=== PATIENT | female | born 1970 | race Caucasian/White ===

== ENCOUNTER 2020-04-04 21:52 | Emergency (ER) | payer OTHER, SELFPAY ==
--- NOTE | ~2020-04-04 | XR_ITS ---
EXAMINATION: XR chest 1V portable DATE: 04/04/2020 23:36 INDICATION: Cough and shortness of breath TECHNIQUE: frontal view of the chest was obtained. COMPARISON: None FINDINGS: The lungs are clear with no focal airspace opacities, pulmonary edema, pleural effusion or pneumothor ax. The cardiomediastinal silhouette is normal. Couple surgical clips projecting over the left axilla /lateral left breast. IMPRESSION: 1. No acute cardiopulmonary disease. Reviewed, dictated and finalized at location A.
[2020-04-04 21:59] VITALS: BP 140/91; PULSE 116; RESP 15; TEMP 37.6; O2SAT 97
--- NOTE | 2020-04-04 22:01 | ED.URI ---
HPI - URI/Sore Throat General Chief Complaint: Upper Respiratory Infection Stated Complaint: COVID S/S Time Seen by Provider: 04/04/20 22:01 History of Present Illness HPI Narrative: Sore throat, cough, nausea, weakness, dizziness for the past few days. Associated with subjective fever. She is concerned that she has COVID-19. She has no known exposure. Related Data Allergies Allergy/AdvReac Type Severity Reaction Status Date / Time codeine Allergy Swelling Verified 04/04/20 21:54 Sulfa (Sulfonamide Allergy Swelling Verified 04/04/20 21:54 Antibiotics) Review of Systems Review of Systems: All systems reviewed & are unremarkable except as noted in HPI and below Constitutional: Constitutional: Reports chills, Reports fatigue, Reports fever(s) and Reports weakness ENT: Reports sore throat Cardiovascular: Cardiovascular: Reports chest pain Respiratory: Respiratory: Reports cough and Reports dyspnea Gastrointestinal: Gastrointestinal: Reports diarrhea, Reports nausea and Denies vomiting Genitourinary: Genitourinary: Denies dysuria Musculoskeletal: Musculoskeletal: Reports myalgias Neurologic: Reports weakness Exam Const: General: healthy appearing, no acute distress and alert Orientation/consciousness: patient oriented x3 HENMT: Mouth: Yes dry mucous membranes Neck: Neck: normal visual inspection and no lymphadenopathy Chest: Chest palpation & inspection: no tenderness Resp: Effort & Inspection: normal respiratory effort Auscultation: clear to auscultation bilaterally Cardio: Jugular venous distension: no JVD Rate: regular rate Rhythm: regular rhythm GI: Inspection: non-distended GI Palp: Yes Soft to palpation and No Tenderness to palpation present (GI) Skin: General skin exam: normal color Neuro: General: patient oriented x3 Speech: normal speech Extrem: General: normal to inspection Psych: Appearance: well kempt Affect: normal affect Course Vital Signs Vital signs: Vital Signs Temperature 37.6 C 04/04/20 21:59 Pulse Rate 116 H 04/04/20 21:59 Respiratory Rate 15 04/04/20 21:59 Blood Pressure 140/91 H 04/04/20 21:59 Pulse Oximetry 97 04/04/20 21:59 Temperature 37.6 C 04/04/20 21:59 Pulse Rate 82 04/04/20 22:05 Respiratory Rate 20 04/04/20 22:05 Blood Pressure 109/70 04/04/20 22:05 Pulse Oximetry 100 04/04/20 22:05 MDM - URI/Sore Throat MDM Narrative Medical decision making narrative: Exam benign. Will get labs and chest x-ray to rule out anything acute. Medical Records Attestation: I reviewed the patient's medical records. Lab Data Attestation: I reviewed the patient's lab results. Result diagrams: 04/04/20 22:58 04/04/20 22:58 Labs: Lab Results 04/04/20 04/04/20 04/04/20 Range/Units 22:27 22:58 22:58 WBC 5.1 (4.5-10.0) K/mm3 RBC 4.44 (4.2-5.4) M/mm3 Hgb 14.2 (12.0-15.0) g/dL Hct 42.0 (37.0-47.0) % MCV 94.6 (80-100) fl MCH 32.0 (26-34) pg MCHC 33.8 (32-36) g/dl RDW 12.9 (11.5-14.5) % Plt Count 245 (150-375) k/mm3 MPV 10.8 H (7.4-10.4) fl Immature Gran % (Auto) 0.0 (0-0.5) % Neut % (Auto) 53.1 (45.5-73.1) % Lymph % (Auto) 30.9 (18.3-44.2) % [place] % (Auto) 12.9 H (2.6-8.5) % Eos % (Auto) 2.5 (0-4.4) % Baso % (Auto) 0.6 (0.2-1.2) % Lymph # (Auto) 1.58 (0.9-3.2) K/mm3 [place] # (Auto) 0.7 H (0.1-0.6) K/mm3 Eos # (Auto) 0.1 (0-0.3) K/mm3 Baso # (Auto) 0.0 (0.0-0.1) K/mm3 Abs Immat Gran (auto) 0.00 (0.00-0.031) K/mm3 Absolute Neuts (auto) 2.7 (1.3-6.7) K/mm3 Absolute Nucleated RBC 0.0 (0.0-0.012) K/mm3 Nucleated RBC % 0.0 (0.0-0.2) % Sodium 138 (137-145) mmol/L Potassium 3.7 (3.4-5.0) mmol/L Chloride 102 (98-107) mmol/L Carbon Dioxide 27 (22-30) mmol/L Anion Gap 9 (8-16) mmol/L BUN 9 (7-17) mg/dL Creatinine 0.80 (0.7-1.0) mg/dL Estim Creat Clear Calc No
[2020-04-04 22:05] VITALS: BP 109/70; PULSE 82; RESP 20; O2SAT 100
--- NOTE | 2020-04-04 22:34 | ECG_ITS ---
Measurements Intervals [place] Rate: 88 P: 32 [place]: 144 QRS: -11 QRSD: 99 T: 32 QT: 349 QTc: 424 Interpretive Statements SINUS RHYTHM DELAYED PRECORDIAL R/S TRANSITION BASELINE WANDER- I BORDERLINE ECG Electronically Signed On 04-05-2020 7:50:36 CDT by Lefty Hightower D.O.
[2020-04-04 23:05] LABS: Basophils Percent Auto 0.6 % (0.2-1.2); Eosinophils Absolute Auto 0.1 K/mm3 (0-0.3); Eosinophils Percent Auto 2.5 % (0-4.4); Hemoglobin 14.2 g/dL (12.0-15.0); Lymphocytes Absolute Auto 1.58 K/mm3 (0.9-3.2); Lymphocytes Percent Auto 30.9 % (18.3-44.2); Mean Corpuscular HGB Conc 33.8 g/dl (32-36); Mean Corpuscular Volume 94.6 fl (80-100); Mean Platelet Volume 10.8 fl (7.4-10.4); Monocytes Absolute Auto 0.7 K/mm3 (0.1-0.6); Monocytes Percent Auto 12.9 % (2.6-8.5); Neutrophils Absolute Auto 2.7 K/mm3 (1.3-6.7); Neutrophils Percent Auto 53.1 % (45.5-73.1); Platelet Count Result 245 k/mm3 (150-375); Red Blood Count 4.44 M/mm3 (4.2-5.4); Red Cell Distribution Width 12.9 % (11.5-14.5); White Blood Count 5.1 K/mm3 (4.5-10.0)
[2020-04-04] MEDS: SODIUM CHLORIDE 0.9% IV 1,000 ML 999 ML IV CONT (23:07)
[2020-04-04] MEDS: KETOROLAC 30 MG/ML VIAL (*BKC) IV PUSH (23:07)
[2020-04-04 23:18] LABS: Anion Gap 9 mmol/L (8-16); Blood Urea Nitrogen 9 mg/dL (7-17); Calcium 8.9 mg/dL (8.4-10.2); Carbon Dioxide 27 mmol/L (22-30); Chloride 102 mmol/L (98-107); Estimated Glomerular Filt Rate > 60; Glucose 103 mg/dL (65-105); Potassium 3.7 mmol/L (3.4-5.0); Sodium 138 mmol/L (137-145)
[2020-04-05 00:11] VITALS: BP 138/70; PULSE 80; RESP 16; O2SAT 99
[2020-04-05 12:13] LABS: SARS-CoV-2 RNA PCR Positive
== END 2020-04-05 00:12 | disposition home or self-care (01) ==
PROVIDERS: Emergency Provider Emergency Medicine
DX: U07.1 COVID-19 (principal); J06.9 Acute upper respiratory infection, unspecified; R94.31 Abnormal electrocardiogram [ECG] [EKG]
CPT/HCPCS: 36415; 71045; 80048; 85025; 87635; 87880; 93005; 96361; 96374; 99284; C9803; J1885; J7030; U0003

== ENCOUNTER 2020-11-07 22:20 | Emergency (ER) | payer OTHER, SELFPAY ==
--- NOTE | ~2020-11-07 | XR_ITS ---
EXAMINATION: XR chest 1V portable DATE: 11/07/2020 22:46 INDICATION: Chest pain. Fever. TECHNIQUE: A single frontal view of the chest was obtained. COMPARISON: Chest single view 04/04/2020 FINDINGS: The chest demonstrates clear lungs without pneumonia, pleural effusion, or pneumothorax. Th e heart size is normal. There are surgical clips in left axilla. IMPRESSION: 1. No acute cardiopulmonary disease. Reviewed, dictated and finalized at location A.
[2020-11-07 22:23] VITALS: BP 153/89; PULSE 90; RESP 14; TEMP 38.3; O2SAT 98
--- NOTE | 2020-11-07 22:30 | ECG_ITS ---
Measurements Intervals [place] Rate: 88 P: 17 [place]: 143 QRS: -4 QRSD: 86 T: 21 QT: 334 QTc: 405 Interpretive Statements SINUS RHYTHM BASELINE WANDER- I, II, III NORMAL ECG Electronically Signed On 11-08-2020 7:07:29 CDT by Lefty Hightower D.O.
[2020-11-07 22:37] VITALS: PULSE 84
[2020-11-07] MEDS: MORPHINE SULFATE (*CRX) 4 MG/ML INJ IV PUSH (22:44)
[2020-11-07] MEDS: ONDANSETRON INJ 4 MG/2 ML VIAL IV PUSH (22:44)
[2020-11-07] MEDS: ASPIRIN 81 MG CHEWABLE TABLET 324 MG PO (22:44)
[2020-11-07 23:13] LABS: Basophils Absolute Auto 0.1 K/mm3 (0.0-0.1); Basophils Percent Auto 1.2 % (0.2-1.2); Eosinophils Absolute Auto 0.1 K/mm3 (0-0.3); Eosinophils Percent Auto 1.4 % (0-4.4); Hematocrit 40.6 % (37.0-47.0); Hemoglobin 13.8 g/dL (12.0-15.0); Immature Granulocyte Absolute 0.02 K/mm3 (0.00-0.031); Immature Granulocyte Percent A 0.3 % (0-0.5); Lymphocytes Absolute Auto 1.15 K/mm3 (0.9-3.2); Lymphocytes Percent Auto 20.1 % (18.3-44.2); Mean Corpuscular Hemoglobin 31.9 pg (26-34); Mean Corpuscular Volume 93.8 fl (80-100); Monocytes Absolute Auto 0.4 K/mm3 (0.1-0.6); Monocytes Percent Auto 6.8 % (2.6-8.5); Neutrophils Percent Auto 70.2 % (45.5-73.1); Platelet Count Result 228 k/mm3 (150-375); Red Blood Count 4.33 M/mm3 (4.2-5.4); Red Cell Distribution Width 12.9 % (11.5-14.5); White Blood Count 5.7 K/mm3 (4.5-10.0)
[2020-11-07 23:14] VITALS: TEMP 38.3
[2020-11-07 23:22] LABS: Alanine Aminotransferase 24 U/L (4-35); Alkaline Phosphatase 49 U/L (38-126); Anion Gap 6 mmol/L (8-16); Aspartate Amino Transferase 31 U/L (14-36); Bilirubin,Total 1.1 mg/dL (0.2-1.3); Blood Urea Nitrogen 15 mg/dL (7-17); Carbon Dioxide 27 mmol/L (22-30); Chloride 102 mmol/L (98-107); Estimated CRCL calculation 79 ml/min; Estimated Glomerular Filt Rate 58; Glucose 116 mg/dL (65-105); Lipase 111 U/L (23-300); Potassium 3.6 mmol/L (3.4-5.0); Sodium 135 mmol/L (137-145)
[2020-11-07] MEDS: KETOROLAC 30 MG/ML VIAL (*BKC) IV PUSH (23:26)
[2020-11-07 23:33] LABS: Troponin I < 0.012 ng/mL (0.000-0.034)
--- NOTE | 2020-11-07 23:35 | PC.NURSE ---
Patient in room stating the pain improved initially but has gradually gotten worse. EDP Bri was notified, 30mg Toradol ordered.
[2020-11-07 23:41] VITALS: BP 140/109; PULSE 93; RESP 16; O2SAT 96
[2020-11-07 23:42] LABS: Add Urine Microscopic? YES; Appearance Urine Clear (Clear); Bacteria Urine Trace /hpf; Bilirubin Urine Negative (Negative); Blood Urine Negative (Negative); Color Urine Straw (Yellow); Glucose Urine UA Negative (Negative); Ketones Urine Trace mg/dL (Negative); Leukocyte Esterase Ur Negative LEU/UL (Negative); Nitrate Urine Negative (Negative); Protein Urine Negative (Negative); RBC Urine 0-2 /hpf (0-2); Squamous Epithelial Cell Urine Rare /hpf (Few); Urobilinogen Urine Negative mg/dL (<2.0); WBC Urine 0-3 /hpf
[2020-11-07 23:56] VITALS: TEMP 38.3
--- NOTE | 2020-11-08 00:24 | ED.GENADULT ---
HPI - General Adult General Chief complaint: Chest Pain Stated complaint: CHEST PAIN Time Seen by Provider: 11/07/20 22:24 History of Present Illness HPI narrative: Patient is a 50-year-old female who presents the emergency department with chief complaint of fever and chest pain. The patient reports that she just had her second Covid vaccine and now has a sharp type pain in her chest that is worse whenever she takes a deep breath. Patient states that she has fever and body aches and just feels generally unwell. Related Data Allergies Allergy/AdvReac Type Severity Reaction Status Date / Time codeine Allergy Swelling Verified 04/04/20 21:54 Sulfa (Sulfonamide Allergy Swelling Verified 04/04/20 21:54 Antibiotics) Review of Systems Review of Systems: Narrative: A 10 system review of systems was completed on the patient and is negative except for what is stated in the HPI. Nursing and ancillary documentation was reviewed. PMFSH Comments Past medical history is significant for COVID-19 infection previously Social history the patient denies smoking Exam Narrative: Exam Narrative: GENERAL: Well-appearing, well-nourished, and in no acute distress. HEAD: Normocephalic, atraumatic. EYES: PERRLA and EOMI. ENT: Nares clear, no rhinorrhea or epistaxis. Mucous membranes moist. NECK: Supple. CHEST: Clear to auscultation. No respiratory distress. Chest wall is tender to palpation along the costal cartilage HEART: Regular rate and rhythm. No murmur heard. Normal peripheral pulses. ABDOMEN: Soft, nontender, nondistended, normal active bowel sounds. EXTREMITIES: Normal range of motion. No edema. SKIN: Warm, dry, no rash. NEURO: No focal deficits. Alert and oriented x3. PSYCH: Normal mood and affect. Course Vital Signs Vital signs: Vital Signs Temperature 38.3 C H 11/07/20 22:23 Pulse Rate 90 11/07/20 22:23 Respiratory Rate 14 11/07/20 22:23 Blood Pressure 153/89 H 11/07/20 22:23 Pulse Oximetry 98 11/07/20 22:23 Temperature 38.3 C H 11/07/20 23:14 Pulse Rate 84 11/07/20 22:37 Respiratory Rate 14 11/07/20 22:23 Blood Pressure 153/89 H 11/07/20 22:23 Pulse Oximetry 98 11/07/20 22:23 Medical Decision Making Vital Signs Vital Signs: Vital Signs Temperature 38.3 C H 11/07/20 22:23 Pulse Rate 90 11/07/20 22:23 Respiratory Rate 14 11/07/20 22:23 Blood Pressure 153/89 H 11/07/20 22:23 Pulse Oximetry 98 11/07/20 22:23 Temperature 38.3 C H 11/07/20 23:14 Pulse Rate 84 11/07/20 22:37 Respiratory Rate 14 11/07/20 22:23 Blood Pressure 153/89 H 11/07/20 22:23 Pulse Oximetry 98 11/07/20 22:23 Lab Data Result diagrams: 11/07/20 23:05 11/07/20 23:05 Labs: Lab Results 11/07/20 11/07/20 11/07/20 Range/Units 23:05 23:05 23:30 WBC 5.7 (4.5-10.0) K/mm3 RBC 4.33 (4.2-5.4) M/mm3 Hgb 13.8 (12.0-15.0) g/dL Hct 40.6 (37.0-47.0) % MCV 93.8 (80-100) fl MCH 31.9 (26-34) pg MCHC 34.0 (32-36) g/dl RDW 12.9 (11.5-14.5) % Plt Count 228 (150-375) k/mm3 MPV 10.0 (7.4-10.4) fl Immature Gran % (Auto) 0.3 (0-0.5) % Neut % (Auto) 70.2 (45.5-73.1) % Lymph % (Auto) 20.1 (18.3-44.2) % [place] % (Auto) 6.8 (2.6-8.5) % Eos % (Auto) 1.4 (0-4.4) % Baso % (Auto) 1.2 (0.2-1.2) % Lymph # (Auto) 1.15 (0.9-3.2) K/mm3 [place] # (Auto) 0.4 (0.1-0.6) K/mm3 Eos # (Auto) 0.1 (0-0.3) K/mm3 Baso # (Auto) 0.1 (0.0-0.1) K/mm3 Abs Immat Gran (auto) 0.02 (0.00-0.031) K/mm3 Absolute Neuts (auto) 4.0 (1.3-6.7) K/mm3 Absolute Nucleated RBC 0.0 (0.0-0.012) K/mm3 Nucleated RBC % 0.0 (0.0-0.2) % Sodium 135 L (137-145) mmol/L Potassium 3.6 (3.4-5.0) mmol/L Chloride 102 (98-107) mmol/L Carbon Dioxide 27 (22-30) mmol/L Anion Gap 6 L (8-16) mmol/L BUN 15 D (7-17) mg/dL Creatinine 1.00 (0.7-1.0) mg/dL Estim Creat Clear C
[2020-11-08 00:40] VITALS: TEMP 38.3
[2020-11-08 01:24] VITALS: BP 153/85; PULSE 85; RESP 20; O2SAT 95
== END 2020-11-08 01:26 | disposition home or self-care (01) ==
PROVIDERS: Emergency Provider Emergency Medicine
DX: R50.9 Fever, unspecified (principal); R07.89 Other chest pain; Z86.16 Personal history of COVID-19
CPT/HCPCS: 36415; 71045; 80053; 81001; 83690; 84484; 85025; 93005; 96374; 96375; 99284; A9270; J0131; J1885; J2270; J2405

== ENCOUNTER 2023-07-29 12:27 | Observation (INO) | payer OTHER, SELFPAY ==
[2023-07-29] VITALS (20 sets, daily range): BP systolic 109–157; BP diastolic 71–105; PULSE 90–116; RESP 16–33; TEMP 36.2–36.6; O2SAT 96–100; BMI 33.2
--- NOTE | ~2023-07-29 | XR_ITS ---
EXAMINATION: XR chest 2V DATE: 07/29/2023 13:35 INDICATION: Cough, right-sided chest pain with inspiration TECHNIQUE: frontal and lateral views of the chest were obtained. COMPARISON: Chest radiograph dated 11/07/2020 FINDINGS: There are airspace opacities in the bilateral lower lung zones. No pleural effusion or pneumothorax. Heart size is normal. Asymmetric decreased size of the left breast shadow relative to the right with multiple surgical clips suggesting prior partial mastectomy. Additional surgical clips at the left ax illa consistent with associated lymph node dissection. IMPRESSION: 1. Opacities at the bilateral lower lung zones which could represent atelectasis and/or pneumonia. Reviewed, dictated and finalized at location A. Y MIXER IMPRESSION: 1. Opacities at the bilateral lower lung zones which could represent atelectasi s and/or pneumonia.
--- NOTE | ~2023-07-29 | CT_ITS ---
EXAMINATION: CTA chest PE protocol DATE: 07/29/2023 19:53 VEGETABLE FARM WORKER INDICATION: Elevated d-dimer. Tachycardia. TECHNIQUE: Computed tomographic angiography (CTA) of the chest was performed with 100 mL Omnipaque-35 0 intravenous contrast. The dose-length product was 649.83 mGy-cm. Maximum intensity projection 3D-re constructions of the aorta and other arteries were constructed by the technologist on a separate work station. Automated exposure control and iterative reconstruction technique were employed. COMPARISON: Chest x-ray dated 07/29/2023. FINDINGS: Study technically adequate. There is occlusion of the right lower lobe pulmonary artery, co nsistent with pulmonary embolism. There is right hilar and lower lobe soft tissue which may represent lymphadenopathy. There is extensive bilateral lower lobe airspace disease, compatible with pneumonia . No endobronchial lesions. No pneumothorax. There is a low-density 2.5 cm right adrenal mass, most l ikely benign adenoma. IMPRESSION: 1. Right lower lobe pulmonary embolism, moderate thrombus burden. 2: Bilateral lower lobe pneumonia. 3: Right hilar and lower lobe soft tissue which may represent lymphadenopathy, although underlying m alignancy not excluded. Reviewed, dictated and finalized at location A. TABLE FARM WORKER IMPRESSION: 1. Right lower lobe pulmonary embolism, moderate thrombus burden. 2: Bilateral lower lobe pneumonia. 3: Right hilar and lower lobe soft tissue which may represent lymphadenopathy, although underlying malignancy not excluded.
--- NOTE | 2023-07-29 12:27 | ECG_ITS ---
Measurements Intervals [place] Rate: 109 P: 23 CO: 136 QRS: -14 QRSD: 93 T: 15 QT: 311 QTc: 420 Interpretive Statements SINUS TACHYCARDIA BORDERLINE VOLTAGE EVIDENCE OF LVH POOR R-WAVE PROGRESSION ABNORMAL ECG ABNORMAL RHYTHM ECG COMPARED TO ECG 11/07/2020 22:26:22 HEART RATE INCREASED NO OTHER SIGNIFICANT CHANGE Electronically Signed On 07-30-2023 13:01:21 RESEARCH ANTHROPOLOGIST by Rashad Dumont M.D.
[2023-07-29 13:15] LABS: Basophils Absolute Auto 0.1 K/mm3 (0.0-0.1); Basophils Percent Auto 0.7 % (0.2-1.2); Eosinophils Absolute Auto 0.2 K/mm3 (0-0.3); Eosinophils Percent Auto 1.3 % (0-4.4); Hematocrit 45.4 % (37.0-47.0); Hemoglobin 14.4 g/dL (12.0-15.0); Immature Granulocyte Absolute 0.04 K/mm3 (0.00-0.031); Immature Granulocyte Percent A 0.3 % (0-0.5); Lymphocytes Absolute Auto 1.92 K/mm3 (0.9-3.2); Lymphocytes Percent Auto 16.5 % (18.3-44.2); Mean Corpuscular HGB Conc 31.7 g/dl (32-36); Mean Corpuscular Hemoglobin 30.8 pg (26-34); Mean Corpuscular Volume 97.2 fl (80-100); Mean Platelet Volume 9.7 fl (7.4-10.4); Monocytes Absolute Auto 1.1 K/mm3 (0.1-0.6); Monocytes Percent Auto 9.3 % (2.6-8.5); Neutrophils Absolute Auto 8.3 K/mm3 (1.3-6.7); Neutrophils Percent Auto 71.9 % (45.5-73.1); Platelet Count Result 283 k/mm3 (150-375); Red Blood Count 4.67 M/mm3 (4.2-5.4); Red Cell Distribution Width 13.2 % (11.5-14.5); White Blood Count 11.6 K/mm3 (4.5-10.0)
[2023-07-29 13:28] LABS: Alanine Aminotransferase 27 U/L (6-35); Albumin Level 4.4 g/dL (3.5-5.1); Alkaline Phosphatase 81 U/L (38-126); Anion Gap 11 mmol/L (8-16); Aspartate Amino Transferase 26 U/L (14-36); Bilirubin,Total 1.7 mg/dL (0.2-1.3); Blood Urea Nitrogen 19 mg/dL (7-17); Calcium 9.5 mg/dL (8.4-10.2); Carbon Dioxide 24 mmol/L (22-30); Chloride 102 mmol/L (98-107); Estimated CRCL calculation 85 ml/min; Estimated Glomerular Filt Rate > 60; Glucose 120 mg/dL (65-110); INR 1.1; Lipase 101 U/L (23-300); Potassium 4.3 mmol/L (3.4-5.0); Prothrombin Time 14.3 Seconds (11.1-14.7); Sodium 137 mmol/L (137-145)
[2023-07-29 13:29] LABS: Partial Thromboplastin Time 30.5 SECONDS (22.3-36.8)
[2023-07-29 13:40] LABS: Troponin I < 0.012 ng/mL (0.000-0.034)
--- NOTE | 2023-07-29 16:47 | ED.CHESTPAIN ---
HPI - Chest Pain General Chief Complaint: Chest Pain Stated Complaint: Chest pain Time Seen by Provider: 07/29/23 16:37 Source: patient and family Limitations: no limitations History of Present Illness HPI narrative: This is a 52 yo female who presents with R sided chest pain for 4 days. Pain is improved with staying still and worsened by lying down. She describes it as a pressure, sharp. It radiates to her right arm and neck. 10/10 in severity and constant. No myalgias, URI symptoms, sick contacts. She describes it as pleuritic and constant. Worse with movement. This has happened before but that was in the setting of her receiving her covid shot #2; no recent immunizations. She is also short of breath. She has an upcoming surgery planned and underwent cardiac clearance. Non smoker. History of acid reflux. Also has a headache and her ears pop. She sees a medical oncology physician (Mary Kay) who has her on atenolol for an increased heart rate. Received an MRI of her heart at [facility] that showed a callous on her heart versus aortic valve felt to be secondary to a port she previously had in place. Related Data Home Medications Medication Instructions Recorded Confirmed atenolol 25 mg tablet 12.5 mg HS 07/29/23 07/29/23 cetirizine 10 mg tablet (Zyrtec) 10 mg PO HS 07/29/23 07/29/23 levothyroxine 75 mcg tablet 75 mcg PO DAILY 07/29/23 07/30/23 (Synthroid) venlafaxine 75 mg capsule,extended 75 mg PO DAILY 07/29/23 07/29/23 release 24 hr Allergies Allergy/AdvReac Type Severity Reaction Status Date / Time adhesive tape Allergy Blister Verified 07/29/23 22:01 codeine Allergy Swelling Verified 04/04/20 21:54 Sulfa (Sulfonamide Allergy Swelling Verified 04/04/20 21:54 Antibiotics) [facility] Past Medical History Medical History (Updated 07/31/23 @ 00:27 by Gaby Barros MD) Allergic rhinitis Breast cancer Invasive ductal carcinoma 1st occurrence in 1999 treated with lumpectomy, radiation therapy and chemotherapy. With recurrence in 2004 treated with chemotherapy and mastectomy. She had subsequent breast reconstruction in 2005 complicated by MRSA of the implant site with implant removal Essential hypertension Hypothyroidism Surgical History Surgical History (Updated 07/30/23 @ 08:11 by Renee Felipe DO) History of total mastectomy of left breast (~2004) Status post left breast reconstruction (~2005) Complicated by MRSA infection and subsequent removal of breast implant Family History Family History Father Hypertension Heart disease Mother High cholesterol Social History Social History (Updated 07/30/23 @ 08:13 by Renee Felipe DO) Social History: The patient has 2 master's degrees in various michelle of Education. 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 Her children her now adults. She has been for approximately 32 years. She has 3 grand children 1 of which stays with her frequently. She did smoke briefly in her 20s. She denies significant alcohol use or illicit substance use. Code status: Full code Surrogate decision maker: Smoking packs per day: 1 Smoking cigarettes per day: 20.0 Years smoked: 2 Smoking pack-years: 2.00 Smoking status: Former smoker Tobacco type: cigarettes Alcohol intake: never Substance use: never Lack of Transportation: No Lack of Food: Never True Current Housing: I Have Housing Concerned About Future Housing: No Difficulty Paying Gas/Electric Bills: No Difficulty Paying for Meds: No Currently Unemployed: No Education: Master's Degree or Higher Difficulty w/ Childcare or Family Care: No Spiritual care concerns: No Exam Narrative: GENERAL: Well-appearing, well-nourished, in acute acute distress. HEAD: Normocephalic, atraumatic. EYES: Non injected, non icteric. ENT: Nares clear, no rhinorrhea or epistaxis. NECK: Supple. No meningismus CHES
--- NOTE | 2023-07-29 17:10 | PC.NURSE ---
pt wants to avoid NSAIDs because their doctor said it is contraindicated with effexor
[2023-07-29] MEDS: MORPHINE SULFATE (*CRX) 4 MG/ML INJ IV PUSH (18:22)
[2023-07-29 18:37] LABS: D Dimer 1.23 ug/mL (<0.48)
[2023-07-29 18:47] LABS: Influenza A QL RT-PCR Negative (Negative); Influenza B QL RT-PCR Negative (Negative); SARS-CoV-2 RNA PCR Negative (Negative)
[2023-07-29 18:47] LABS: Troponin I < 0.012 ng/mL (0.000-0.034)
[2023-07-29] MEDS: ONDANSETRON INJ 4 MG/2 ML VIAL (18:51)
--- NOTE | 2023-07-29 18:53 | ECG_ITS ---
Measurements Intervals [place] Rate: 75 P: 23 MI: 155 QRS: -1 QRSD: 88 T: 21 QT: 385 QTc: 432 Interpretive Statements SINUS RHYTHM POOR R-WAVE PROGRESSION ABNORMAL ECG COMPARED TO ECG 07/29/2023 12:32:32 NO DIFFERENCE Electronically Signed On 07-30-2023 15:01:01 EBAY RESELLER by Rashad Dumont M.D.
[2023-07-29] MEDS: ACETAMINOPHEN 500 MG TABLET 1000 MG PO (19:29)
--- NOTE | 2023-07-29 21:43 | ADMGEN ---
This patient, Chio Frausto, was admitted to 3 Med Surg Room 306-01. Patient/family oriented to hospital policies and general routines including ID bracelet, bed and alarms, visiting hours, pain management, procedures, bathroom and other care routines, personal items, smoking policy, room service/diet, and visiting hours. Information on how to activate the Rapid Response Team has been discussed. Patient/Family are encouraged to report perceived risks to care and to ask questions if they do not understand what they are told or what they should do.
[2023-07-29 21:51] LABS: Troponin I < 0.012 ng/mL (0.000-0.034)
[2023-07-29] MEDS: APIXABAN 5 MG TABLET 10 MG PO (22:10)
[2023-07-29] MEDS: HYDROcodone/acetaminophen (*CRX) 5-325 MG TABLET 1 TAB PO (22:52)
--- NOTE | 2023-07-29 23:49 | PM.IMHP ---
H&P: HPI History of Present Illness Date/Time: 07/29/23 23:49 Chief Complaint: Right-sided chest pain Narrative: 52-year-old female with a past medical history of invasive ductal carcinoma, hypothyroidism, essential hypertension and depression who presented to the ER with right-sided chest pain. Patient reports the chest pain is right-sided and extends up into the right neck. Pain is more in the basin radiates through to the back. Pain is worse with deep breathing and is associated with some shortness of breath. She reports that it hurts more to cough so she has been suppressing her cough that is dry. She denies any fevers or chills or recent ill contacts. She denies any lower extremity swelling or sedentary lifestyle. She denies any family history of DVTs or PEs. She does have a history of breast cancer with 2 recurrences 1st occurrence in 2001nd in 2004. She had a CTA of the chest in the ER which demonstrated right lower lobe pulmonary embolism with moderate thrombus burden and bilateral lower lobe pneumonia with right hilar and lower lobe soft tissue changes which may represent lymphadenopathy. Although underlying malignancy could not be excluded. Patient denies any history of known lung disease, asthma, tobacco use or prolonged travel. 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 She denies any tachycardia or palpitations. Her chest discomfort is worse with exertion. It is also worse with laying supine and improved with sitting up. Review of Systems Review of Systems: 12 systems were reviewed with pertinent positives and negatives per HPI. Except as documented in the HPI, all other systems were reviewed and are negative. [facility] Past Medical History Medical History (Updated 07/30/23 @ 08:14 by Renee Felipe DO) Allergic rhinitis Breast cancer Invasive ductal carcinoma 1st occurrence in 1999 treated with lumpectomy, radiation therapy and chemotherapy. With recurrence in 2004 treated with chemotherapy and mastectomy. She had subsequent breast reconstruction in 2005 complicated by MRSA of the implant site with implant removal Essential hypertension Hypothyroidism Surgical History Surgical History (Updated 07/30/23 @ 08:11 by Renee Felipe DO) History of total mastectomy of left breast (~2004) Status post left breast reconstruction (~2005) Complicated by MRSA infection and subsequent removal of breast implant Family History Family History Father Hypertension Heart disease Mother High cholesterol Social History Social History (Updated 07/30/23 @ 08:13 by Renee Felipe DO) Social History: The patient has 2 master's degrees in various michelle of Education. 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 She has been for approximately 32 years. She has 3 grand children 1 of which stays with her frequently. She did smoke briefly in her 20s. She denies significant alcohol use or illicit substance use. Code status: Full code Surrogate decision maker: Smoking packs per day: 1 Smoking cigarettes per day: 20.0 Years smoked: 2 Smoking pack-years: 2.00 Smoking status: Former smoker Tobacco type: cigarettes Alcohol intake: never Substance use: never Lack of Transportation: No Lack of Food: Never True Current Housing: I Have Housing Concerned About Future Housing: No Difficulty Paying Gas/Electric Bills: No Difficulty Paying for Meds: No Currently Unemployed: No Education: Master's Degree or Higher Difficulty w/ Childcare or Family Care: No Spiritual care concerns: No Meds Home Medications and Allergies Home Medications Medication Instructions Recorded Confirmed Type atenolol 25 mg tablet 12.5 mg HS 07/29/23 07/29/23 History cetirizine 10 mg tablet (Zyrtec) 10 mg PO HS 07/29/23 07/29/23 History levothyroxine 75 mcg tablet 75 m
[2023-07-30] VITALS (14 sets, daily range): BP systolic 130–142; BP diastolic 63–84; PULSE 70–141; RESP 18–20; TEMP 36.4–37.2; O2SAT 93–97
--- NOTE | 2023-07-30 | ECHO_ITS ---
Patient Info Name: Chio Frausto Age: 52 years : 1970 Gender: Female Ht: 72 in Wt: 244 lbs BSA: 2.40 m2 HR: 108 bpm BP: 131 / 70 mmHg Heart Rhythm: Sinus Rhythm Technical Quality: Fair Exam Date: 07/30/2023 10:10 AM Exam Location: Echo Lab Exam Room: [facility] Patient Status: Inpatient Admit Date: 07/29/2023 Staff Ordering Physician: Renee Felipe DO Pellet Post Inspector: Emilee Aguirre RDCS Attending Provider: Renee Felipe DO Referring Physician: Destinee ROY; Exam Type: CA echo dop color flow w con Study Info Indications - PULMONARY EMBOLISM Complete two-dimensional, color flow and Doppler transthoracic echocardiogram is performed with contrast to opacify the left ventricle and to improve the deliniation of the left ventricle endocardial borders. Contrast/Agitated Saline Contrast/Ag. Saline: Definity Amount: 2.00 ml Administered By: Emilee Aguirre RDCS Existing IV Access: Yes IV Access Condition: patent with no signs of infiltration Summary 1. Technically difficult exam/definity contrast utilized to improve imaging. 2. Normal left ventricular size with preserved systolic contractility. 3. No significant valvular dysfunction. 4. No regional wall motion abnormalities were identified. Left Ventricle Left ventricular chamber dimension is normal. Left ventricular systolic function is normal, estimated at 60-65%. The left ventricular diastolic function is grade I diastolic dysfunction. Right Ventricle Right ventricular chamber dimension is normal. Left Atria Left atrial chamber dimension is normal. Right Atria Right atrial chamber dimension is normal. Aortic Valve The aortic valve is normal. Pulmonic Valve The pulmonic valve is not well visualized. Mitral Valve The mitral valve has normal leaflets. Tricuspid Valve The tricuspid valve leaflets are not well visualized. Pericardium/Pleural The pericardium appears normal. Aorta The aortic root size at the sinus of Valsalva is normal. Left Ventricular Outflow Tract Name Value Normal LVOT 2D LVOT Diameter 1.89 cm LVOT Doppler LVOT Peak Gradient 7 mmHg LVOT Mean Gradient 4 mmHg LVOT VTI 26.42 cm LVOT VTI/AV VTI Ratio 0.94 LVOT Stroke Volume 74.12 ml LVOT CO 6.96 l/min LVOT CI 2.89 L/min/m2 Pulmonic Valve Name Value Normal RVOT Doppler RVOT Peak Gradient 3 mmHg PV Doppler PV Peak Gradient 6 mmHg Mitral Valve Name Value Normal MV Do
[2023-07-30] MEDS: ACETAMINOPHEN 325 MG TABLET 650 MG PO (01:30)
[2023-07-30] MEDS: HYDROcodone/acetaminophen (*CRX) 5-325 MG TABLET 1 TAB PO ×5 (04:10→21:09)
[2023-07-30] MEDS: APIXABAN 5 MG TABLET 10 MG PO ×2 (08:31→20:45)
[2023-07-30] MEDS: levoFLOXacin 750 MG TABLET PO (08:35)
[2023-07-30] MEDS: PERFLUTREN LIPID MICROSPHERES 1.5 ML VIAL DILUTED TO 10 ML TOTAL VOLUME IV PUSH (10:48)
--- NOTE | 2023-07-30 11:15 | IVDEFINITY ---
Prior to administration of IV Definity the patient was educated on the risks and benefits of the imaging enhancing agent including potential adverse side effects. The patient verbalized understanding. Allergies were verified. No exclusion criteria were identified and at least one of the following inclusion criteria were met: 1) physician request, 2) patient technically difficult to image (per the [place] [employer] Echocardi[employer] guidelines of two or more segments not discernable within the apical view), or 3) questionable left ventricular function. ?
[2023-07-30] MEDS: VENLAFAXINE HCL XR 75 MG CAP.ER.24H PO (14:50)
--- NOTE | 2023-07-30 19:03 | PHAR ---
HOME MED: SYNTHROID (LEVOTHYROXINE) 75 MG TABLETS, TAKE ONE TABLET BY MOUTH EVERY DAY, PATIENTS HOME MED VERIFIED IN PHARMACY.
[2023-07-30] MEDS: LORATADINE 10 MG TABLET PO (20:46)
[2023-07-30] MEDS: atenoloL 12.5 MG TABLET PO (20:47)
--- NOTE | 2023-07-30 21:41 | PC.NURSE ---
home Synthroid verified by pharmacy
[2023-07-31] VITALS (7 sets, daily range): BP systolic 116–140; BP diastolic 80–83; PULSE 85–100; RESP 18–20; TEMP 35.8–36.5; O2SAT 93–97
[2023-07-31] MEDS: HYDROcodone/acetaminophen (*CRX) 5-325 MG TABLET 1 TAB PO (02:33)
--- NOTE | 2023-07-31 04:50 | PC.NURSE ---
called DO Destinee pt is c/o chest pain on right side with breathing states 04/05, last [place]co was around 2am and patient is unable to have any more pain medication except tylenol at this time. awaiting call back.
[2023-07-31] MEDS: ACETAMINOPHEN 325 MG TABLET 650 MG PO (04:52)
[2023-07-31] MEDS: HYDROmorphone HCL INJ (*CRX) 1 MG/ML SYR 0.5 MG IV PUSH (05:13)
--- NOTE | 2023-07-31 05:24 | PC.NURSE ---
hydromorphone given for co patient R chest with breathing per DO Hopen aware
[2023-07-31] MEDS: LEVOTHYROXINE SODIUM 75 MCG TABLET PO (05:33)
[2023-07-31 06:35] LABS: Hematocrit 39.3 % (37.0-47.0); Hemoglobin 12.5 g/dL (12.0-15.0); Mean Corpuscular HGB Conc 31.8 g/dl (32-36); Mean Corpuscular Hemoglobin 30.9 pg (26-34); Mean Corpuscular Volume 97.3 fl (80-100); Mean Platelet Volume 9.7 fl (7.4-10.4); Platelet Count Result 286 k/mm3 (150-375); Red Blood Count 4.04 M/mm3 (4.2-5.4); Red Cell Distribution Width 13.1 % (11.5-14.5); White Blood Count 8.9 K/mm3 (4.5-10.0)
[2023-07-31 07:08] LABS: Anion Gap 7 mmol/L (8-16); Blood Urea Nitrogen 10 mg/dL (7-17); Calcium 8.7 mg/dL (8.4-10.2); Carbon Dioxide 27 mmol/L (22-30); Chloride 100 mmol/L (98-107); Estimated CRCL calculation 110 ml/min; Estimated Glomerular Filt Rate > 60; Glucose 117 mg/dL (65-110); Potassium 3.9 mmol/L (3.4-5.0); Sodium 134 mmol/L (137-145)
--- NOTE | 2023-07-31 08:03 | PM.IMPN ---
Progress Note: A&P Assessment and Plan (1) Pulmonary embolism: Qualifiers: Pulmonary embolism type: unspecified Chronicity: acute Acute cor pulmonale presence: unspecified Qualified Code(s): I26.99 - Other pulmonary embolism without acute cor pulmonale Code(s): I26.99 - Other pulmonary embolism without acute cor pulmonale Status: Acute Assessment and Plan: Right sided pleuritic chest pain radiating into right scapula CTA + for PE with moderate clot burden. Also concerns for BLL PNA and right hilar and lower lobe soft tissue which may represent lymphadenopathy. Started on eliquis for treatment No oxygen requirements at this time (2) CAP (community acquired pneumonia): Code(s): J18.9 - Pneumonia, unspecified organism Status: Acute Assessment and Plan: Possible pneumonia on CTA and patient reports SOB, chills, and cough with a mild leukocytosis on admission. Will treat for CAP with levqauin (3) Breast cancer: Qualifiers: Breast location: unspecified site of breast Estrogen receptor status: negative Patient sex: female Laterality: left Qualified Code(s): C50.912 - Malignant neoplasm of unspecified site of left female breast; Z17.1 - Estrogen receptor negative status [ER-] Code(s): C50.919 - Malignant neoplasm of unspecified site of unspecified female breast Status: Acute Assessment and Plan: Follow up with oncologist at d/c given lymphadenopathy seen on CTA (4) Essential hypertension: Code(s): I10 - Essential (primary) hypertension Status: Acute Assessment and Plan: Stable. blood pressures reviewed 07/31. (5) Hypothyroidism: Qualifiers: Hypothyroidism type: acquired Qualified Code(s): E03.9 - Hypothyroidism, unspecified Code(s): E03.9 - Hypothyroidism, unspecified Status: Acute Assessment and Plan: Stable. Plan The patient has right lower lobe pulmonary embolism. Given the patient's history of prior breast cancer recurrence of malignancy cannot completely be ruled out especially in the setting of CT scan which demonstrates right hilar and lower lobe but soft tissue changes which could be consistent with lymphadenopathy or malignancy. Will obtain echocardiogram to rule out component of pulmonary hypertension although I suspect this is less likely given the patient's thrombus burden and lack of tachycardia or hypoxia. The patient was admitted for pain control due to severe pleural area pain. Pain is improved after [place]. If patient's pain is controlled and echos unremarkable patient could be discharged home on Eliquis to follow-up with her oncologist as outpatient. Patient will benefit from repeat imaging to re-evaluate in 3-6 months. Imaging did demonstrate bilateral lower lobe current solid a givens could be consistent with pneumonia versus atelectasis. Patient did have mild leukocytosis. Patient was having some occasional chills at home. Will place patient on empiric antibiotic therapy with Levaquin. Given that the patient has a difficult IV placement will place patient on oral antibiotic therapy specially since Levaquin and has equivalent penetration oral versus IV. Patient's blood pressures are stable will resume home antihypertensive. Will continue patient's home levothyroxine. Patient has been admitted as observation status. Subjective Date/time seen: 07/31/23 08:03 Interval history: HPI obtained from the chart, 52-year-old female with a past medical history of invasive ductal carcinoma, hypothyroidism, essential hypertension and depression who presented to the ER with right-sided chest pain.? Patient reports the chest pain is right-sided and extends up into the right neck.? Pain is more in the basin radiates through to the back.? Pain is worse with deep breathing and is associated with some shortness of breath.? She reports that it hurts more to cough so she has been suppr
[2023-07-31] MEDS: APIXABAN 5 MG TABLET 10 MG PO (09:46)
[2023-07-31] MEDS: levoFLOXacin 750 MG TABLET PO (09:46)
--- NOTE | 2023-07-31 11:32 | PM.DS ---
DS: Admitting Diagnosis Discharge Date 07/31 Admitting Diagnosis Chest pain DS: Discharge Diagnosis Discharge Diagnosis (1) Pulmonary embolism: Qualifiers: Pulmonary embolism type: unspecified Chronicity: acute Acute cor pulmonale presence: unspecified Qualified Code(s): I26.99 - Other pulmonary embolism without acute cor pulmonale Code(s): I26.99 - Other pulmonary embolism without acute cor pulmonale Status: Acute Assessment and Plan: Right sided pleuritic chest pain radiating into right scapula CTA + for PE with moderate clot burden. Also concerns for BLL PNA and right hilar and lower lobe soft tissue which may represent lymphadenopathy. Started on eliquis for treatment No oxygen requirements at this time (2) CAP (community acquired pneumonia): Code(s): J18.9 - Pneumonia, unspecified organism Status: Acute Assessment and Plan: Possible pneumonia on CTA and patient reports SOB, chills, and cough with a mild leukocytosis on admission. Will treat for CAP with levqauin (3) Breast cancer: Qualifiers: Breast location: unspecified site of breast Estrogen receptor status: negative Patient sex: female Laterality: left Qualified Code(s): C50.912 - Malignant neoplasm of unspecified site of left female breast; Z17.1 - Estrogen receptor negative status [ER-] Code(s): C50.919 - Malignant neoplasm of unspecified site of unspecified female breast Status: Acute Assessment and Plan: Follow up with oncologist at d/c given lymphadenopathy seen on CTA (4) Essential hypertension: Code(s): I10 - Essential (primary) hypertension Status: Acute Assessment and Plan: Stable. blood pressures reviewed 07/31. (5) Hypothyroidism: Qualifiers: Hypothyroidism type: acquired Qualified Code(s): E03.9 - Hypothyroidism, unspecified Code(s): E03.9 - Hypothyroidism, unspecified Status: Acute Assessment and Plan: Stable. Plan The patient has right lower lobe pulmonary embolism. Given the patient's history of prior breast cancer recurrence of malignancy cannot completely be ruled out especially in the setting of CT scan which demonstrates right hilar and lower lobe but soft tissue changes which could be consistent with lymphadenopathy or malignancy. Will obtain echocardiogram to rule out component of pulmonary hypertension although I suspect this is less likely given the patient's thrombus burden and lack of tachycardia or hypoxia. The patient was admitted for pain control due to severe pleural area pain. Pain is improved after [place]. If patient's pain is controlled and echos unremarkable patient could be discharged home on Eliquis to follow-up with her oncologist as outpatient. Patient will benefit from repeat imaging to re-evaluate in 3-6 months. Imaging did demonstrate bilateral lower lobe current solid a givens could be consistent with pneumonia versus atelectasis. Patient did have mild leukocytosis. Patient was having some occasional chills at home. Will place patient on empiric antibiotic therapy with Levaquin. Given that the patient has a difficult IV placement will place patient on oral antibiotic therapy specially since Levaquin and has equivalent penetration oral versus IV. Patient's blood pressures are stable will resume home antihypertensive. Will continue patient's home levothyroxine. Patient has been admitted as observation status. DS: Summary Hospital Course Hospital Course: 52-year-old female with a past medical history of invasive ductal carcinoma, hypothyroidism, essential hypertension and depression who presented to the ER with right-sided chest pain.? Patient reports the chest pain is right-sided and extends up into the right neck.? Pain is more in the basin radiates through to the back.? Pain is worse with deep breathing and is associated with some shortness of breath.? She reports that it hurts
== END 2023-07-31 14:15 | disposition home or self-care (01) ==
LOC: ANHED 17:00 → ANH3MEDSUR 22:37
PROVIDERS: General Practice; Nurse Practitioner; Admitting Provider Internal Medicine; Emergency Provider Student in an Organized Health Care Education/Training Program; Visit Provider Student in an Organized Health Care Education/Training Program
DX: I26.99 Other pulmonary embolism without acute cor pulmonale (principal); J18.9 Pneumonia, unspecified organism; C50.912 Malignant neoplasm of unspecified site of left female breast; I10 Essential (primary) hypertension; E03.9 Hypothyroidism, unspecified; R94.31 Abnormal electrocardiogram [ECG] [EKG]; K21.9 Gastro-esophageal reflux disease without esophagitis; R51.9 Headache, unspecified; Z20.822 Contact with and (suspected) exposure to COVID-19; J30.9 Allergic rhinitis, unspecified; F32.A Depression, unspecified; Z87.891 Personal history of nicotine dependence; Z85.3 Personal history of malignant neoplasm of breast; Z92.21 Personal history of antineoplastic chemotherapy; Z92.3 Personal history of irradiation; Z90.12 Acquired absence of left breast and nipple; Z82.49 Family history of ischemic heart disease and other diseases of the circulatory system
CPT/HCPCS: 36415; 71046; 71275; 80048; 80053; 83690; 84484; 85025; 85027; 85380; 85610; 85730; 87636; 93005; 96374; 96375; 99285; A9270; C8929; G0378; J1170; J2270; J2405; Q9957; Q9967